=== PATIENT | female | born 1960 | race Caucasian/White ===

== ENCOUNTER → 2017-03-15 | Outpatient (CLI) | payer MEDICARE, MEDICAID ==
--- NOTE | ~2017-03-15 | PUL ---
PATIENT'S NAME: RHONDA GANLINE Brown [facility] AGE: 56 Y [address] ROOM: [place] [address] LOCATION: [facility] ADMIT DATE: 03/15/2017 Pulmonary DISCHARGE DATE: FAMILY PHYSICIAN: Anibal Aden MD ATTENDING PHYSICIAN: Anibal Aden NAME OF PROCEDURE: Sleep study PROCEDURE DATE: 03/15/17 TECH: OMAR Laura TEST #: [facility] [place]# [id number] TECHNICAL PARAMETERS: The patient was studied using International 10/20 measuring system. While the patient was studied, there was continuous monitoring of EEG (8 leads), EOG (2 leads), EKG (3 leads), submental EMG (3 leads), tibial (4 leads), respiratory inductive plethysmography (RIP) for thoracic and abdominal effort, oral and nasal airflow with a thermocouple and pressure transducer, and oximetry. The scheme technician also performed visual and auditory observations noting things like body position, patient's status, breath sounds, artifact, snoring level and patient comments. Continuous sound was monitored using a 2-way speaker system and video monitoring was performed using an infrared camera. Review of the entire study was performed epoch by epoch utilizing a single epoch and multiple epoch capability sleep system. MEDICAL HISTORY: The patient is a 56-year-old woman with daytime sleepiness and snoring. SLEEP STAGE SUMMARY: The patient was studied for 485 minutes of which she slept 433 minutes. She fell asleep in 10 minutes and slept for 89% of the night. Sleep architecture revealed a decline in slow wave and REM sleep. RESPIRATORY SUMMARY: Oxygen saturations ranged from 83-92% and were below 88% for 83 minutes. There were 5 apneas and 13 hypopneas for an apnea/hypopnea index normal at 2.5 events per hour. EKG SUMMARY: No significant dysrhythmias were noted. LIMB MOVEMENT SUMMARY: No clinically relevant periodic limb movements were noted. SUMMARY: Mild nocturnal hypoxemia. PLAN: Patient will receive results from the ordering provider. [facility]GE[facility] 56 Y [address] ROOM: [place] [address] LOCATION: [facility] ADMIT DATE: 03/15/2017 Pulmonary DISCHARGE DATE: FAMILY PHYSICIAN: Anibal Aden MD ATTENDING PHYSICIAN: Anibal Aden MD Bettye BOWENS /[id number] dtt: 03/17/17 1509 , dtd:
== END | disposition disaster alternative care site (69) ==
LOC: GSLP 20:19
DX: G47.10 Hypersomnia, unspecified (principal); R09.02 Hypoxemia